=== PATIENT | female | born 1955 | race Caucasian/White ===

== ENCOUNTER → 2019-09-17 13:05 | Outpatient (ROUT) | payer MEDICARE, OTHER, SELFPAY ==
[2019-09-17 14:38] LABS: Adenovirus Not Detected (Not Detect); Bordetella pertussis Not Detected (Not Detect); Chlamydophila pneumoniae Not Detected (Not Detect); Coronavirus 229E Not Detected (Not Detect); Coronavirus HKU1 Not Detected (Not Detect); Coronavirus NL 63 Not Detected (Not Detect); Coronavirus OC43 Not Detected (Not Detect); Human Metapneumovirus Not Detected (Not Detect); Human Rhinovirus/Enterovirus Not Detected (Not Detect); Influenza A Not Detected (Not Detect); Influenza B Not Detected (Not Detect); Mycoplasma pneumoniae Not Detected (Not Detect); Parainfluenza Virus 1 Not Detected (Not Detect); Parainfluenza Virus 2 Not Detected (Not Detect); Parainfluenza Virus 3 Not Detected (Not Detect); Parainfluenza Virus 4 Not Detected (Not Detect); Respiratory Syncytial Virus Not Detected (Not Detect)
== END ==
PROVIDERS: Family Provider Family Medicine; PCP Family Medicine; Visit Provider Family Medicine
DX: R50.9 Fever, unspecified (principal); R05 Cough; R68.83 Chills (without fever); J02.9 Acute pharyngitis, unspecified
CPT/HCPCS: 87633

== ENCOUNTER 2023-03-29 01:35 | Emergency (ER) | payer MEDICARE, OTHER, SELFPAY ==
[2023-03-29] VITALS (11 sets, daily range): BP systolic 136–158; BP diastolic 66–88; PULSE 48–72; RESP 14–46; TEMP 36.6; O2SAT 92–97; BMI 84.3
--- NOTE | 2023-03-29 02:07 | DI.RAD.S_ITS ---
PROCEDURE: XR CHEST 1V INDICATIONS: apnea TECHNIQUE: One view of the chest was acquired. COMPARISON: None. FINDINGS: Surgical changes and devices: None. Lungs and pleura: Mild infiltrates in lower lobes. No pleural effusions or pneumothorax. Mediastinum: Mediastinal contours appear normal. Heart size is mildly enlarged. Bones and chest wall: No suspicious bony lesions. Overlying soft tissues appear unremarkable. IMPRESSION: 1. Mild infiltrates in lower lobes suspicious for pneumonia. A differential diagnosis is mild pulmonary edema. 2. Mild cardiomegaly. No significant discrepancy with the drug abuse resistance education officer radiology preliminary report. Dictated by: Kota Bedolla M.D. on 03/29/2023 at 8:11 Approved by: Kota Bedolla M.D. on 03/29/2023 at 8:13
[2023-03-29 02:13] LABS: Add Manual Diff / Slide Review NO; Basophils Absolute Auto 100 /uL (0-100); Basophils Percent Auto 1.1 % (0-2); Eosinophils Absolute Auto 400 /uL (0-450); Eosinophils Percent Auto 6.6 % (2-4); Hematocrit 37.6 % (36-46); Hemoglobin 13.1 g/dL (12.0-16.0); Lymphocytes Absolute Auto 900 /uL (1100-4500); Lymphocytes Percent Auto 14.2 % (25-40); Mean Corpuscular HGB Conc 34.9 % (30-36); Mean Corpuscular Hemoglobin 30.3 PG (26-34); Mean Corpuscular Volume 86.9 fL (80-100); Monocytes Absolute Auto 600 /uL (0-900); Monocytes Percent Auto 9.2 % (3-14); Neutrophils Absolute Auto 4200 /uL (1500-7000); Neutrophils Percent Auto 68.9 % (50-75); Platelet Count 264 X10^3/uL (150-400); Red Blood Cell Count 4.33 X10^6/uL (4.0-5.2)
[2023-03-29 02:18] LABS: Alanine Aminotransferase 20 IU/L (<35); Albumin 3.8 g/dL (3.5-5.0); Albumin Globulin Ratio 1.2 (1.0-2.8); Alkaline Phosphatase 84 U/L (38-126); Aspartate Aminotransferase 30 IU/L (14-36); Bilirubin Total 0.5 mg/dL (0.2-1.3); Blood Urea Nitrogen 13 mg/dL (7-17); Calcium 8.7 mg/dL (8.4-10.2); Carbon Dioxide 33 mmol/L (22-32); Chloride 91 mmol/L (98-107); Estimated Glomerular Filt Rate > 60 mL/min (>60); Globulin 3.1 g/dL (1.7-4.1); Glucose 119 mg/dL (80-110); HEMOLYSIS < 15 (0-50); Lipase 100 U/L (23-300); Sodium 130 mmol/L (137-145); Total Protein 6.9 g/dL (6.3-8.2)
[2023-03-29 02:25] LABS: Potassium 2.5 mmol/L (3.4-5.1)
[2023-03-29 02:30] LABS: NT-proBNP (BNP-Adult 18+) 188 pg/mL (<125); Troponin I < 0.012 ng/mL (0.01-0.034)
--- NOTE | 2023-03-29 03:22 | ED_ITS ---
HPI - General Adult General Chief complaint: Upper Respiratory Symptoms Stated complaint: apnea sleeping- rescuing breathing done by Time Seen by Provider: 03/29/23 01:40 Source: family and EMS Mode of arrival: EMS History of Present Illness HPI narrative: 67-year-old woman who has a diagnosis of hypertension and anxiety. She takes metoprolol and I suspect hydrochlorothiazide however I am not able to confirm that nor is she. She takes Celexa for anxiety. She is not invested in routine follow-up nor extensive medical workup. Her notes that she snores heavily and frequently has apneic episodes. This evening symptoms were particularly bad to the point that he was concerned that she was not breathing and gave her to rescue breaths which is enough to stimulate her own breathing. When medics arrived oxygen saturations were in the mid 90s on room air but she did seem confused. This resolved fairly quickly. She is aware of sleep apnea, the diagnosis and potential for benefit with CPAP. Neither she nor her report any unusual findings of bleeding including fevers, cough, chills, vomiting, nausea, abdominal pain. Related Data Previous Rx's Medication Instructions Recorded potassium chloride 8 mEq 8 meq PO DAILY #30 caps 03/29/23 capsule,extended release Review of Systems Review of Systems Narrative: Pertinent positive and negative findings as per HPI Patient History Medical History (Updated 03/29/23 @ 03:44 by Rina Peguero MD) Severe sleep apnea Exam Initial Vital Signs Initial Vital Signs: Vital Signs Pulse Rate 72 03/29/23 01:41 Pulse Oximetry 92 03/29/23 01:41 General: Chronically ill-appearing but in no acute distress. Grudgingly participates in history and physical is able to speak in full sentences with no respiratory distress HEENT: Dry lips but Moist mucous membranes, normal sclera with reactive pupils, large basal cell cancer on the right cheek Neck: No JVD, supple Respiratory: Lungs with minor scattered wheeze but no rhonchi, no rales. No accessory muscle use. Cardiac: Regular rate and rhythm no murmurs no bruits Abdomen: Soft, obese, nontender, good bowel tones, no flank pain Skin: Warm and dry, no rashes Neurologic: Grossly neurologically intact with no obvious asymmetries or abno rmalities Extremities: No trauma, Psych: Able to speak in fluent sentences with no evidence of responding to internal stimuli Course Orders Ordered: ED Orders 03/29/23 01:48 Complete Blood Count AUTO DIFF Stat Comprehensive Metabolic Panel Stat Lipase Stat NT-proBNP (BNP-Adult 18+) Stat Troponin I Stat 03/29/23 02:06 VBG [Venous Blood Gas] Stat 03/29/23 02:07 XR chest 1V Stat EKG-12 Lead Stat 03/29/23 02:41 Arterial Blood Gas Stat Vital Signs Vital signs: Vital Signs - 8 hr 03/29/23 02:12 03/29/23 01:41 03/29/23 01:44 Temperature 97.8 F Pulse Rate 50 L 72 56 L Respiratory Rate 18 18 Blood Pressure 141/88 H Pulse Oximetry 95 92 92 Oxygen Delivery Method Room Air 03/29/23 01:44 03/29/23 02:00 03/29/23 02:20 Temperature Pulse Rate 51 L Respiratory Rate 16 Blood Pressure 158/86 H 141/88 H Pulse Oximetry Oxygen Delivery Method 03/29/23 02:20 03/29/23 02:30 03/29/23 02:31 Temperature Pulse Rate 51 L 51 L 53 L Respiratory Rate 19 35 H 46 H Blood Pressure Pulse Oximetry 94 93 95 Oxygen Delivery Method Room Air Room Air Room Air 03/29/23 02:31 Temperature Pulse Rate Respiratory Rate Blood Pressure 157/66 H Pulse Oximetry Oxygen Delivery Method Medical Decision Making Lab Data 03/29/23 01:48 03/29/23 01:48 Labs: Lab Results 03/29/23 03/29/23 03/29/23 Range/Units 01:48 01:48 02:41 WBC 6.0 (4.5-11.0) X10^3/uL RBC 4.33 (4.0-5.2) X10^6/uL Hgb 13.1 (12.0-16.0) g/dL Hct 37.6 (36-46) % MCV 86.9 (80-100) fL MCH 30.3 (26-34) PG MCHC 34.9 (30-36) % RDW 13.0 (11.6-14.8) % Plt Count 264 (150-400) X10^3/uL Neut % (Auto) 68.9 (50-75) % Lymph % (Auto) 14.2 L (25-40) % [place] % (Auto) 9.2 (3-14) % Eos % (Auto) 6.6 H (2-4) % Baso % (Auto) 1.1 (0-2) % Neut # (Auto) 4200 (7292-3430) /uL Lymph # (Auto) 900 L (4717-5277) /uL [place] # (Auto) 600 (0-900) /uL Eos # (Auto) 400 (0-450) /uL Baso # (Auto) 100 (0-100) /uL ABG pH 7.43 (7.35-7.45) ABG pCO2 54.0 H (35-45) mmHg ABG pO2 30 L* (80-100) mmHg ABG HCO3 35 H (23-27) mmol/L ABG Total CO2 37 H (23-27) mmol/L ABG O2 Saturation 58 L* (95-100) % ABG Base Excess 11.0 H (-2-3) mmol/L FiO2 21 Sodium 130 L (137-145) mmol/L Potassium 2.5 L* (3.4-5.1) mmol/L Chloride 91 L (98-107) mmol/L Carbon Dioxide 33 H (22-32) mmol/L BUN 13 (7-17) mg/dL Creatinine 0.65 (0.52-1.04) mg/dL Estimated GFR > 60 (>60) mL/min BUN/Creatinine Ratio 20.0 (6-22) Glucose 119 H (80-110) mg/dL Calcium 8.7 (8.4-10.2) mg/dL Total Bilirubin 0.5 (0.2-1.3) mg/dL AST 30 (14-36) IU/L ALT 20 (<35) IU/L Alkaline Phosphatase 84 (38-126) U/L Troponin I < 0.012 (0.01-0.034) ng/mL NT-Pro-B Natriuret Pep 188 H (<125) pg/mL Total Protein 6.9 (6.3-8.2) g/dL Albumin 3.8 (3.5-5.0) g/dL Globulin 3.1 (1.7-4.1) g/dL Albumin/Globulin Ratio 1.2 (1.0-2.8) Lipase 100 (23-300) U/L MDM Narrative Medical decision making narrative: CC: Apneic episode, acute issue life-threatening potential Complicating co-morbidities: Hypertension, anxiety Data collected from: patient, Social determinants of health that may influence the patients condition: Not particularly interested in allopathic medication nor following up with physicians Differential considered: Severe sleep apnea, pneumonia, congestive heart failure, acute coronary syndrome Exam documented above, pertinent findings include: Exam reveals a patient who is not particularly pleased about the fact that she is in the emergency department. She is speaking in full sentences. No obvious respiratory distress Lab Test results independently reviewed as above. Pertinent findings: Chemistries show a sodium at 1:30 a.m. potassium at 2.5 chloride of 91 bicarb at 33. ProBNP is not significantly elevated at 188 Lipase is within normal limit Venous blood gas shows compensated respiratory retention with a pH 7.4 CO2 of 53 and a bicarb of 35 Independently reviewed EKG sinus Carlos Eduardo at a rate of 51 without acute ischemic changes Imaging studies independently reviewed: Chest x-ray shows mild cardiomegaly with interstitial densities bilaterally Treatments: Oral potassium Discussion: 67-year-old woman with what sounds like severe sleep apnea consistent with her body habitus. Sounds like she had a particularly long apneic spell with her intervening. No obvious respiratory distress no signs of congestive heart failure or acute coronary syndrome at this point. She is given a cervical soft collar to see if that will help so that she does not have such significant forward flexion of her neck while she is sleeping propped up on her pillows to see if this might help a bit with her apnea episodes. Strongly encouraged her to follow-up with her primary care doctor in I believe she will benefit significantly from a confirmed diagnosis of sleep apnea and CPAP. Blood pressure was appropriate, I suspect that the ?mystery tiny white pill? is in fact hydrochlorothiazide. She is given 40 mg of potassium orally in the emergency department for acute hypokalemia. There are not any significant findings on EKG to warrant hospitalization due to her hypokalemia at this point. She is willing to begin adding potassium supplementation to her blood pressure medications. Strongly advised advised her to follow-up with her primary care physician regarding blood pressure as well. At this point she is safe for discharge home Discharge Plan Departure Patient Disposition: Home Clinical Impression: Apneic episode, Severe sleep apnea, Acute hypokalemia Hypertension Qualifiers: Hypertension type: primary hypertension Qualified Code(s): I10 - Essential (primary) hypertension Instructions: DI for Obstructive Sleep Apnea -- Adult Activity Restrictions/Additional Instructions: Thank you for coming in tonight Based on the story, you have severe sleep apnea and likely will feel dramatically better if were able to help you breathe all night long and get an adequate amount of sleep. I have given you a soft neck collar to try and use while your sleeping to see if this helps until you are able to get in for a sleep study and CPAP trial. Treating your sleep apnea will not only give you more energy, will make it much easier to control blood pressure, weight, mood and overall feels dramatically better Your blood work showed that your potassium and sodium levels were slightly low. I suspect this is from 1 of your blood pressure medications, hydrochlorothiazid e. I have given you a dose of potassium in the emergency department and I am going to recommend that continue taking a low-dose of potassium daily until you discuss this again with your primary care doctor Prescriptions: New potassium chloride 8 mEq capsule, extended release 8 meq PO DAILY Qty: 30 0RF Stand Alone Forms: Patient Portal/API
[2023-03-29] MEDS: POTASSIUM CHLORIDE 20 MEQ TAB 40 MEQ PO (03:33)
[2023-03-29 06:35] LABS: Fractionated Inspired Oxygen 21; HCO3 VBG 35 mmol/L (24-28); Oxygen Saturation VBG 58 % (70-75); PO2 VBG 30 mmHg (35-45); Total CO2 VBG 37 mmol/L (24-29); pH VBG 7.43 (7.33-7.43)
== END 2023-03-29 04:00 | disposition home or self-care (01) ==
PROVIDERS: Emergency Provider Emergency Medicine
DX: G47.30 Sleep apnea, unspecified (principal); I10 Essential (primary) hypertension; E87.6 Hypokalemia; R07.9 Chest pain, unspecified
CPT/HCPCS: 36415; 71045; 80053; 82805; 83690; 83880; 84484; 85025; 93005; 93010; 99283; 99284

== ENCOUNTER → 2024-10-23 16:29 | Outpatient (CLI) | payer MEDICARE, OTHER, SELFPAY ==
--- NOTE | 2024-10-23 17:26 | DI.MRI.S_ITS ---
PROCEDURE: MR STROKE Pre- and post-contrast brain MRI, non-contrast brain MR angiogram, pre- and postcontrast neck MR angiogram INDICATIONS: SEIZURE LIKE ACTIVITY TECHNIQUE: Brain: Noncontrast axial T1 spin echo, axial T2 fast spin echo, sagittal and axial FLAIR, coronal T2 fast spin echo, axial gradient echo, axial diffusion and ADC through the brain. After the administration of contrast, axial 3D VIBE of the cranial vasculature and brain. Brain MRA: Non-contrast 3-D time of flight MR angiogram, with multiple dwumbpk-cufofaiew-jzpkdihcgp (MIP) reformats performed. Neck MRA: Axial and sagittal TruFISP through the neck. Coronal dynamic MR angiogram during administration of contrast in the arterial and venous phases, with 3-dimenstional qfzpdlb-tyxlpreyn-jajngbuily (MIP) reformats constructed from subtraction images. COMPARISON: None. FINDINGS: Image quality: Excellent. BRAIN: CSF spaces: Ventricles are normal in size and shape. Basal cisterns are patent. No extra-axial fluid collections. Brain: No intracranial bleeds or mass effects. Diaz-white matter interface is normal. Diffusion weighted images show no acute infarct. Brainstem appears normal. Normal intravascular flow voids are present. No abnormal intracranial enhancement. Skull and face: Calvarial marrow signal is normal. Orbits appear normal. Sinuses: Sinuses and mastoids are clear. BRAIN MR ANGIOGRAM: Anterior circulation: Intracranial internal carotid arteries are normal in size and enhancement. The flow within the paired anterior cerebral arteries is normal and symmetric. The flow within the middle cerebral arteries is normal and symmetric. The anterior communicating artery is seen. No stenoses, occlusions, or aneurysms. Posterior circulation: The visualized portions of the vertebral arteries demonstrate normal caliber, and join to form a normal appearing basilar artery. The flow within the posterior cerebral arteries is normal and symmetric. No stenoses, occlusions, or aneurysms. NECK MR ANGIOGRAM: Carotids: Great vessels demonstrate a conventional anatomy as they arise from the aortic arch. The origins of the common carotid arteries appear patent. The calibers and courses of both common carotid arteries are normal. The bifurcation regions appear normal bilaterally. The internal carotid arteries demonstrate normal course and caliber. Posterior circulation: The origins of the vertebral arteries appear patent. More superior portions of both vertebral arteries demonstrate normal course and caliber, and join to form a normal appearing basilar artery. Miscellaneous: Subclavian arteries appear patent. Pre-contrast images through the neck show no soft tissue abnormalities. IMPRESSION: Mild age-appropriate atrophy and chronic ischemic change without acute infarct, hemorrhage or mass lesion. Unremarkable MR angiogram of the head and neck. No large vessel occlusion, aneurysm or stenosis. Approved by: Bari Crow M.D. on 10/24/2024 at 18:03
== END ==
PROVIDERS: Family Provider Family Medicine; PCP Family Medicine; Referring Provider Family Medicine; Visit Provider Family Medicine
DX: R56.9 Unspecified convulsions (principal)
CPT/HCPCS: 70544; 70549; 70553; A9579